=== PATIENT | female | born 1995 | race Caucasian/White ===

== ENCOUNTER → 2024-04-04 12:05 | Outpatient (CLI) | payer OTHER, MEDICAID, SELFPAY ==
--- NOTE | 2024-04-04 12:08 | DI.US.S_ITS ---
PROCEDURE: US OB >= 14 WEEKS FETUS INDICATIONS: FOLLOW UP ANATOMY SCAN OUTSIDE/PRIOR DATING DATA: Last menstrual period (LMP): Unknown LMP-based estimated date of delivery (DIGNA): Unknown. First dating scan (date and location): 01/18/2024. Estimated date of delivery (DIGNA) from first dating scan: 07/13/2024. The calculations are made using the ultrasound DIGNA of 07/13/2024. TECHNIQUE: Real-time scanning was performed of the fetus, with image documentation. Endovaginal scanning: Not performed COMPARISON: [facility], US, US OB > 14 WEEKS COMPLETE ANATOMY, 03/02/2024, 16:25. FINDINGS: General: A single living intrauterine gestation is present. Presentation: Breech. Placenta: Placental position is posterior, without previa. Amniotic fluid index: 12.4 cm, normal range is 5-24 cm. Single deepest vertical pocket is 3.8 cm cm. heart rate: 141 beats per minute. Maternal cervical canal: 3.2 cm long. Normal lower limit is 2.5 cm. Clinically estimated gestational age: 25 weeks 5 days Anatomic survey: Neuro: Ventricles are non-dilated at less than 10 mm. Cisterna magna is normal at 3-11 mm. Cerebellum is normal in size and morphology. Nuchal skin fold: Normal at less than 6 mm between 14-21 weeks gestational age. Face: Nose and lips, facial profile are normal. IMPRESSION: 1. Pagan living intrauterine at 25 weeks 5 days based prior dating. 2. Normal placenta and amniotic fluid. 3. Normal cranial contents, nuchal fold, face, nose and lips, profile. This completes the anatomic survey. We strive to produce accurate, complete, and clear reports of imaging services. To assist us in improving patient care, this report was composed using standard report templates and voice recognition software. Therefore, it may contain abnormal punctuation, insertions and/or omissions. Occasional wrong-word or sound-alike substitutions may occur. Though we review the report and make efforts to correct it, we do recommend that the report be read carefully in proper context to recognize any text inaccuracies. Dictated by: Efrain Fitzgerald M.D. on 04/13/2024 at 14:30 Approved by: Efrain Fitzgerald M.D. on 04/13/2024 at 14:40
== END ==
PROVIDERS: PCP Nurse Practitioner Family; Referring Provider Advanced Practice Midwife; Visit Provider Advanced Practice Midwife
DX: Z34.92 Encounter for supervision of normal pregnancy, unspecified, second trimester (principal); Z3A.25 25 weeks gestation of pregnancy
CPT/HCPCS: 76816

== ENCOUNTER 2024-07-12 10:53 | Observation (INO) | payer OTHER, MEDICAID, SELFPAY ==
--- NOTE | 2024-07-12 11:39 | PM.OBTRLD ---
Visit Information Visit Information Date of evaluation: 07/12/24 Primary OB Provider: Monica Soliz Reason for Evaluation: Yes rule out labor and Yes rupture of membranes Comments/Additional reasons for admission: Emilee is a at 39w6d by sure LMP and 14w US arrives with her to the unit for evaluation of ROM and labor. She says that she felt a gush of water around 2am this morning and started having contractions shortly after. She said the contractions started to intensify around 5 am this morning. She was having timable contractions that she had to stop and breath through prior to driving to the hospital. During the 1 hour commute to the hospital, she only had 3 contractions. After arriving to the hospital the contractions all but stopped. She has not had any vaginal bleeding and continues to feel good movement. Vital Signs Vital Signs: BP:120/75 HR: 89 T: 98.5 F RR: 16 PFSH Medical History (Updated 07/12/24 @ 12:11 by Monica Soliz CNM) Endometriosis Ovarian cyst Pyelonephritis Surgical History (Updated 07/12/24 @ 11:47 by Monica Soliz CNM) No history of previous surgery Family History (Updated 07/12/24 @ 11:49 by Monica Soliz CNM) Mother Depression Social History (Updated 07/12/24 @ 11:52 by Monica Soliz CNM) Smoking Status: Former smoker Smokeless tobacco user: other quit status: quit date established substance use type: marijuana Comment: She quit using vape when she found out she was . Currently uses marijuana 1-2x day for pain and nausea. Review of Systems Review of Systems ROS: Yes All systems reviewed with the patient and are negative except as otherwise documented Cardiovascular Cardiovascular: Reports system reviewed and no additional complaints, except as documented Respiratory Respiratory: Reports system reviewed and no additional complaints, except as documented Psychiatric Psychiatric: Reports system reviewed and no additional complaints, except as documented Exam Vital Signs (past 8 hours): see above Const General: cooperative, comfortable and well hydrated Orientation: alert, awake, oriented to person, oriented to place and oriented to time Chest Chest: normal inspection of the chest Resp Effort & Inspection: normal respiratory effort and able to speak in complete sentences Cardio Rate: regular rate Rhythm: regular rhythm Psych Appearance: grossly normal Mental Status: mental status grossly normal Speech and Movement: speech and movement normal Mood: congruent mood Objective Labs Labs: Aminsure positive GBS negative Evaluation Evaluation Baseline heart rate: 140 Variability: Moderate (11-25) monitor accelerations: Absent Monitor Decelerations: Absent Contraction Frequency (minutes): 10 (8-10) Uterine Contraction Intensity: Mild Category of Tracing: Reactive Non-invasive Membranes Rupture Test: positive Comments: CE deferred due to SROM Diagnosis, Plan/Disposition Final Diagnosis (1) PROM (premature rupture of membranes): Status: Acute Plan/Disposition Plan: A: Term nullipara PROM x 10 hours without sx of infection No indication for antibiotics Reassuring FHR P: Counseled on options of active vs expectant management of labor w/ discussion of risks, benefits and alternatives. Discussed ROM x 18 hours as risk for infection. Emilee elected expectant management and agrees to return to hospital at or before 24 hours of ROM by 2am 07/13/24. Counseled on reasons to return sooner, PRN. OB Disposition: home
== END 2024-07-12 11:45 | disposition home or self-care (01) ==
PROVIDERS: Admitting Provider Nurse Practitioner Obstetrics & Gynecology; PCP Nurse Practitioner Family; Referring Provider Nurse Practitioner Obstetrics & Gynecology; Visit Provider Nurse Practitioner Obstetrics & Gynecology
DX: O42.92 Full-term premature rupture of membranes, unspecified as to length of time between rupture and onset of labor (principal); Z3A.39 39 weeks gestation of pregnancy
CPT/HCPCS: 59025; 84112; G0378; G0379

== ENCOUNTER 2024-07-13 02:29 | Inpatient (IN) | payer OTHER, MEDICAID, SELFPAY ==
--- NOTE | 2024-07-13 03:12 | PM.OBHP.1 ---
OB HPI Date/Time Date of admission: 07/13/24 Date Patient Seen: 07/13/24 Time Patient Seen: 03:00 History of Present Condition Chief complaint: Labor : 1 Para: 0 Estimated Gestational Age (weeks): 40w Narrative: Emilee Lewis is a 28 year old female by sure LMP concordant with 14w US here today for admission for PROM x 25 hours. Was seen in triage with confirmed PROM and reactive NST at 9 hours of ROM. After counseling on active vs expectant management of PROM with risk of infection increasing at 18 hours of ROM, patient elected expectant management and declined to return to hospital until now. Was able to rest and sleep throughout the day and started eduardo again in the evening. Stronger contractions started around 0300. Currently breathing through contractions every 10 minutes for about 30-40 seconds. She continues to feel good movement and her fluid continues to be clear. She has not had any vaginal bleeding. She arrives with her and mom for labor support. Uncomplicated care with CNMs. Planning no intervention and declines IV placement during labor. History of Present care: good care, initiated at week # (14), number of visits (7) and pounds weight gain (38) Dating criteria: LMP confirmed by 1st trimester US Ultrasounds: normal 1st trimester US and normal mid trimester US Obstetrical complications: none Medical complications: none Preadmission Labs Blood type: O (+) positive -: Antibody screen: negative, GBS status: negative, HBsAG: negative, HIV: negative, HSV 1: negative, HSV 2: negative and RPR/VDLR: negative -: Chlamydia screen: not detected and Gonorrhea screen: not detected -: Rubella: immune and Varicella: immune HCT: 35 HCAB: negative PAP: Normal Quad screen: Normal Urine: negative for infection 1 hr GTT: 96 Evaluation Evaluation Baseline heart rate: 125 Variability: Moderate (11-25) monitor accelerations: Present Monitor Decelerations: Absent Contraction Frequency (minutes): 10 Uterine Contraction Intensity: Moderate Category of Tracing: Reactive Status: Category l Dilation (cm): 1.5 Effacement (%): 70 Comments: x1 CE at 25 hrs of ROM PFSH Medical History Endometriosis Ovarian cyst Pyelonephritis Surgical History No history of previous surgery Family History Mother Depression Social History Smoking Status: Former smoker Smokeless tobacco user: other quit status: quit date established substance use type: marijuana Meds Home Medications and Allergies Allergies Allergy/AdvReac Type Severity Reaction Status Date / Time Milk Containing Products Allergy Severe Anaphylaxis Verified 07/13/24 03:29 (Dairy) Review of Systems Review of Systems ROS: Yes All systems reviewed with the patient and are negative except as otherwise documented Constitutional Constitutional: Reports system reviewed and no additional complaints, except as documented ENT Ears, Nose, Mouth, and Throat: Yes system reviewed and no additional complaints, except as documented Cardiovascular Cardiovascular: Reports system reviewed and no additional complaints, except as documented Respiratory Respiratory: Reports system reviewed and no additional complaints, except as documented Psychiatric Psychiatric: Reports system reviewed and no additional complaints, except as documented OB Exam Vital signs Blood Pressure: 131/72 Pulse Rate: 98 Respiratory Rate: 18 Temperature: 98.1 F Resp Effort & Inspection: normal respiratory effort and able to speak in complete sentences Cardio Rate: regular rate Rhythm: regular rhythm External Female Exam: Yes normal external appearance Presentation: vertex Estimated Weight (lbs): 7 Amniotic Fluid: clear Objective Labs 07/13/24 03:45 Assessment and Plan Assessment and Plan Assessment and Plan narrative: A: Term nullipara Early Labor PROM x25 hours Afebrile GBS prophylaxis not indicated Rhogam not indicated Reassuring status P: Admit, routine labor orders. Counseled on strong recommendation to start pitocin d/t PROM x25 hours and not in active labor. Risks, benefits, alternatives discussed including infection which increases risk of PPH, sepsis and transfer. Patient declines pitocin augmentation, but agrees to IV placement with admission labs. Pt agrees to do rounds of pumping, walking, rest to augment labor. Assess maternal temperature q1 hour per protocol. May switch to intermittent auscultation. Reassess in 4 hours or sooner, PRN. Time-Based Coding :: [TOTAL MINUTES] spent with patient and on the chart (including review of chart, obtaining history, exam, reviewing outside data, placing orders, documenting exam and treatment plan, and counseling patient) on [DATE].
[2024-07-13 03:49] VITALS: BP 131/72; PULSE 98; RESP 18
[2024-07-13 03:54] VITALS: TEMP 36.7
[2024-07-13 03:55] LABS: Add Manual Diff / Slide Review NO; Basophils Absolute Auto 0 /uL (0-100); Basophils Percent Auto 0.3 % (0-2); Eosinophils Absolute Auto 0 /uL (0-450); Eosinophils Percent Auto 0.3 % (2-4); Hematocrit 31.4 % (36-46); Hemoglobin 10.6 g/dL (12.0-16.0); Lymphocytes Absolute Auto 1800 /uL (1100-4500); Lymphocytes Percent Auto 17.5 % (25-40); Mean Corpuscular HGB Conc 33.7 % (30-36); Mean Corpuscular Hemoglobin 29.5 PG (26-34); Mean Corpuscular Volume 87.4 fL (80-100); Monocytes Absolute Auto 800 /uL (0-900); Neutrophils Absolute Auto 7600 /uL (1500-7000); Neutrophils Percent Auto 73.9 % (50-75); Platelet Count 154 X10^3/uL (150-400); Red Blood Cell Count 3.59 X10^6/uL (4.0-5.2); White Blood Cell Count 10.3 X10^3/uL (4.5-11.0)
[2024-07-13] MEDS: ONDANSETRON 4 MG/2 ML INJ IV (04:30)
--- NOTE | 2024-07-13 07:12 | PM.OBPNLAB ---
Date/Time Date Patient Seen: 07/13/24 Time Patient Seen: 07:12 Pain Control Pain control: tolerating well Comments: Has copleted several rounds of pumping/walking/resting. After the first pumping session, her contractions immediately picked up and have remained strong and regular. She has tied NO2 with minimal relief and really preferred the shower to cope best. Consents to a repeat CE at this time. VS: BP 128/73, HR 78, T 36.6C Pelvic Exam Dilation (cm): 5 Effacement (%): 80 station: -2 Amniotic membrane status: Leaking Contractions Monitor mode: Palpation Contraction frequency (min): 3 (2-4) Contraction duration (min): 1 Contraction intensity: Moderate Status Heart Rate Baseline: 130 (regular, no decreases) Assessment and Plan Assessment: active labor (PROMx29 hours without sx of infection) Plan: continuous present management Comments: Labor support, PRN. Reassess in 4 hours or sooner, PRN.
--- NOTE | 2024-07-13 13:21 | PM.OBPNLAB ---
Date/Time Date Patient Seen: 07/13/24 Time Patient Seen: 13:00 Pain Control Pain control: other (NO2, hydrotherapy) Comments: Laboring well without augmentation. Changing positions frequently. Switching between laboring in the tub and in her room on hands and knees utilizing NO2. Struggling to cope, but has not requested additional interventions. Declined an interval CE until now. Her mother has been supportive at her side. Her partner remains present. VS: BP 125/80, HR 92bpm, T 97.8F Oral Pelvic Exam Dilation (cm): 7 Effacement (%): 90 station: -2 Amniotic membrane status: Leaking Contractions Monitor mode: Palpation Contraction frequency (min): 3 (2-4) Contraction intensity: Moderate Status Heart Rate Baseline: 138 (regular) Comments: reassuring by IA Assessment and Plan Assessment: active labor (PROM x 35 hours without sx of infection) Plan: continuous present management (expectant management) Comments: Labor support, PRN. Continue Q1hr temps. Reassess in 4 hours or sooner, PRN.
--- NOTE | 2024-07-13 17:08 | PM.OBPNLAB ---
Date/Time Date Patient Seen: 07/13/24 Time Patient Seen: 17:08 Pain Control Pain control: other (NO2) Comments: Laboring well without augmentation. Occasionally utilizing NO2 with some relief. Preferring hands and knees, moving from bed to floor. Continuous labor support by family, friend, RN and CNM. VS: BP 139/87, HR 91bpm, T 97.5F Temporal Pelvic Exam Dilation (cm): 8 Effacement (%): 90 station: 0 Amniotic membrane status: Leaking Contractions Monitor mode: Palpation Contraction frequency (min): 3 (2-4) Contraction duration (min): 1 Contraction intensity: Moderate Status Heart Rate Baseline: 135 (regular) Comments: Reassuring FHTs by IA Assessment and Plan Assessment: active labor (PROM x 39 hours without sx of infection) Plan: continuous present management Comments: Continuous labor support. Reassess in 4 hours, or sooner, PRN.
--- NOTE | 2024-07-13 20:45 | PM.OBPNLAB ---
Date/Time Date Patient Seen: 07/13/24 Time Patient Seen: 20:46 Pain Control Pain control: other Comments: Continues to switch between hydrotherapy, NO2 in the room and no interventions for analgesia. Struggling to cope, does not desire an epidural. Afraid of increasing pressure. Mother remains supportive at her side. RN and CNM offering near continuous labor support. VS: BP 135/79, HR 78, T 97.7F Oral Pelvic Exam Dilation (cm): 9 Effacement (%): 90 station: 0 Amniotic membrane status: Leaking Contractions Monitor mode: Palpation Contraction frequency (min): 4 (2-5) Contraction duration (min): 1 Contraction intensity: Moderate Status Heart Rate Baseline: 135 (regular) Comments: reassuring by IA Assessment and Plan Assessment: active labor (prolonged, PROM x 43 hours without sx of infection) Plan: continuous present management Comments: Continuous labor support. Anticipate second stage soon.
--- NOTE | 2024-07-13 23:55 | PM.OBPNLAB ---
Date/Time Date Patient Seen: 07/13/24 Time Patient Seen: 23:55 Pain Control Pain control: other (NO2) Comments: CNM at bedside continuously for last several hours. Strong, spontaneous urge to push at 2157 and Emilee was presumed complete. She has struggled with pushing, more instinctively clenching and backing away from the intense pressure despite coaching and significant maternal conscious effort. Emilee is now frustrated and requesting pain relief. VS: BP 137/87, HR 126, T 97.7F Oral Pelvic Exam Dilation (cm): 10 Effacement (%): 100 station: 0 Amniotic membrane status: Leaking Contractions Monitor mode: Palpation Contraction frequency (min): 3 (2-4) Contraction duration (min): 1 Contraction intensity: Moderate Status Heart Rate Baseline: 145 (regular) Comments: FHR reassuring by IA throughout 2 hours of second stage Assessment and Plan Assessment: active labor (prolonged, PROM x 46 hours without sx of infection) Plan: continuous present management and other (Epidural DIAZ) Comments: Once adequate pain relief is established, will continue with coached pushing. Anticipate NSVB.
--- NOTE | 2024-07-14 01:24 | PM.AN.REGBLK ---
Regional Block Pre-procedure Procedure: Continuous Lumbar Epidural for L&D (with CSE) Attending OB provider: Monica Soliz PMH/ROS narrative: 28yo complete and had been pushing ineffectively, now requests epidural for pain relief. See preanesthesia evaluation for further details. ASA Class: II Labs: Hct 31.4 % (36-46) L 07/13/24 03:45 Plt Count 154 X10^3/uL (150-400) 07/13/24 03:45 Medications: Current Medications Generic Name Dose Route Start Last Admin Trade Name Freq PRN Reason Stop Dose Admin Calcium Carbonate 1,000 mg 07/13/24 02:32 Calcium Carbonate 500 Mg Tab PO Q2HR PRN Dyspepsia Carboprost Tromethamine 250 mcg 07/13/24 02:32 Carboprost 250 Mcg/Ml Ampul IM Q90M PRN Bleeding Diphenhydramine HCl 25 mg 07/14/24 01:21 Diphenhydramine 50 Mg/Ml Vial IV Q10M PRN Pruritis Ephedrine Sulfate 10 mg 07/14/24 01:21 Ephedrine 50 Mg/Ml Vial IV Q5M PRN Blood pressure decrease more than 20% of baseline. Fentanyl 100 mcg 07/13/24 02:32 Fentanyl 100 Mcg/2 Ml Inj IV Q1H PRN Pain, Severe (7-10) Oxytocin/Lactated Ringer's 30 unit in 500 mls @ 200 mls/hr 07/13/24 02:32 Oxytocin Premix IV CONT PRN Bleeding Protocol Tranexamic Acid 1,000 mg/ 100 mls @ 600 mls/hr 07/13/24 02:32 Sodium Chloride IV NOW PRN Bleeding Oxytocin/Lactated Ringer's 30 unit in 500 mls @ 2 mls/hr 07/13/24 02:45 Oxytocin Premix IV TITRATE SYLVIA Protocol 2 MILLIUNIT/MIN FENT 2MCG/ML BUPIV 0.125% EPI 200 mcg in 100 mls @ 6 mls/hr 07/14/24 01:30 Fentanyl/Bupiv/Ns 2mcg/Ml - 0.125% EPIDURAL CONT SYLVIA Lidocaine HCl 20 ml 07/13/24 02:32 Lidocaine 1% 20 Ml INJ INTRA-OP PRN Post Delivery Methylergonovine Maleate 0.2 mg 07/13/24 02:32 Methylergonovine 0.2 Mg Tablet PO Q6HR PRN Heavy Bleeding Methylergonovine Maleate 0.2 mg 07/13/24 02:32 Methylergonovine 0.2 Mg/Ml Vial IM NOW PRN Bleeding Mineral Oil 30 ml 07/13/24 02:32 Mineral Oil 30 Ml Udc TOP PRN PRN Version Misoprostol 800 mcg 07/13/24 02:32 Misoprostol 200 Mcg Tablet NH NOW PRN Bleeding Misoprostol 400 mcg 07/13/24 02:32 Misoprostol 200 Mcg Tablet SL NOW PRN Bleeding Nalbuphine HCl 2.5 mg 07/14/24 01:21 Nalbuphine 20 Mg/Ml Ampul IV Q10M PRN Pruritis Naloxone HCl 0.2 mg 07/13/24 02:32 Naloxone 0.4 Mg/Ml Vial IV Q2MIN PRN Opiate Reversal Ondansetron HCl 4 mg 07/13/24 02:32 07/13/24 04:30 Ondansetron 4 Mg/2 Ml Inj IV 4 mg Q4HR PRN Administration Nausea And Vomiting Oxytocin 10 unit 07/13/24 02:32 Oxytocin 10 Unit/Ml Vial IM NOW PRN Bleeding Allergies: Allergies Allergy/AdvReac Type Severity Reaction Status Date / Time Milk Containing Products Allergy Severe Anaphylaxis Verified 07/13/24 03:29 (Dairy) Procedure Insertion date: 07/14/24 Insertion time: 00:53 Prep/Local: 1% lidocaine (Chloraprep) Interspace: L3-4 Patient position: sitting Needle: 18 gauge Hustead (27g 5 Christiano for CSE) Loss of resistance with: saline WAI at (cm): 7 Catheter placed at SKIN (cm): 14 Catheter in SPACE (cm): 7 Insertion: No CSF, No Blood, No Paresthesia with insertion, No Paresthesia with injection and No Test dose reaction Initial Medications TEST DOSE time: 00:55 TEST DOSE: 1.5% lidocaine with epinephrine 1:200k (mL): 3 BOLUS DOSE time: 01:05 BOLUS DOSE (mL): 7 BOLUS DOSE med: other (2 ml same as test dose, 5 ml 2% lido PF) Infusion INFUSION: 0.125% bupivacaine and with fentanyl 2 mcg/mL Initial rate (mL/hr): 10 Subsequent interventions: Pt extremely tense. Required three attempts between multiple contractions to access epidural space. No CSF noted with dural puncture but gave 0.4 ml of 0.75% of bupivacaine in dextrose. Catheter placed without difficulty and secured in place. Pt initially said legs felt warm but continued to have significant pain with contractions. Attempted sensory exam, but pt unable to give useful feedback. Bolus given via epidural catheter, and then epidural infusion started. 01:57 - Pt appears to have had some relief but only a small amount from epidural bolus. Has started pushing again and pushing better than before but remains uncomfortable. Discussed with Monica PHOENIX, and bolus of 100 mcg fentanyl and 10 ml 2% lido PF given. 02:19 - Bolus appeared to take the edge off enough to help pt deliver. Baby girl born 02:19. Post-procedure Anesthesia date START: 07/14/24 Anesthesia time START: 00:37 Anesthesia date END: 07/14/24 Anesthesia time END: 02:19 Post-procedure Anesthesia Assessment: Yes CV function: HR/BP stable, Yes Resp function: RR/sat/airway adequate, Yes Post-op hydration adequate, Yes Pain control adequate, Yes Nausea & vomiting absent, Yes Temperature > 36 C, Yes Mental status appropriate and No Anesthesia complications
[2024-07-14] MEDS: fentaNYL 100 MCG/2 ML INJ IV (01:56)
--- NOTE | 2024-07-14 03:22 | P.PCNOB_ITS ---
Events: Premature Rupture Membrane (PROM x 48 hours) Labor & Delivery Delivery date: 07/14/24 Intrapartal Events: Prolonged Labor > 20 hours and Prolonged 2nd Stage > 2.5 hours Cervical ripening method: none Induction method: other (breast pumping) Route of delivery: Episiotomy description: None L&D Laceration Description: Labial Delivery repair: chromic (3.0) Quantitative Blood Loss: 250 Anesthesia Type: Spinal and Epidural Narrative: PROM x 48 hours (without symptoms of infection) and prolonged active labor (augmentation declined) led to spontaneous second stage. After 2 hours of pushing with minimal descent, an epidural was requested and placed. Minimal pain relief was achieved and pushing continued with Emilee exhausted in the bed. RT was called to standby for FHR in the 90's for 9 minutes prior to the . NSVB of a vigorous baby girl in [place] position. There was no nuchal cord and the shoulders delivered without additional maneuvers. [place] was placed on maternal abdomen for drying and skin to skin and RT was able to leave. Emilee declined active management of the third stage. Apgars 9/9. After cessation of pulsation, the cord was double clamped by CNM and cut by Emilee's mother. Emilee declined cord traction. Spontaneous, Schultze delivery of an apparently intact placenta, membranes and 3VC. Cord blood sample was drawn off of the placenta. Fundus massaged firm and bleeding light. Inspection revealed a right labial split that extended down. Labial laceration was repaired with 3.0 Chromic in the usual fashion. Fundus once again massaged firm and pitocin was again recommended and Emilee consented. 30 units of pitocin in 500mL LR was started at 334mL/hr. QBL 250mL. Both mother and baby stable and skin to skin as I left the room. [place] Baby 1: gender: Female Presentation: vertex Position: Right Occiput Anterior Placenta delivery description: Spontaneous and Normal Configuration Cord Vessel Description: 3 Vessels score (1 min): 9 score (5 min): 9 weight: 3.274 kg Plan for aftercare: Routine care
[2024-07-14] MEDS: IBUPROFEN 600 MG TABLET PO ×3 (04:55→18:06)
[2024-07-14] MEDS: ACETAMINOPHEN 325 MG TABLET 650 MG PO (14:21)
[2024-07-14 15:59] LABS: Add Manual Diff / Slide Review NO; Basophils Absolute Auto 100 /uL (0-100); Basophils Percent Auto 0.6 % (0-2); Eosinophils Absolute Auto 0 /uL (0-450); Hematocrit 33.6 % (36-46); Hemoglobin 10.9 g/dL (12.0-16.0); Lymphocytes Absolute Auto 2200 /uL (1100-4500); Lymphocytes Percent Auto 10.4 % (25-40); Mean Corpuscular HGB Conc 32.5 % (30-36); Mean Corpuscular Hemoglobin 28.6 PG (26-34); Mean Corpuscular Volume 87.8 fL (80-100); Monocytes Absolute Auto 1500 /uL (0-900); Neutrophils Absolute Auto 17400 /uL (1500-7000); Platelet Count 208 X10^3/uL (150-400); Red Blood Cell Count 3.83 X10^6/uL (4.0-5.2); Red Cell Distribution Width 13.1 % (11.6-14.8); White Blood Cell Count 21.2 X10^3/uL (4.5-11.0)
[2024-07-14 16:11] LABS: Alanine Aminotransferase 30 IU/L (<35); Albumin 3.6 g/dL (3.5-5.0); Albumin Globulin Ratio 1.2 (1.0-2.8); Alkaline Phosphatase 201 U/L (38-126); Aspartate Aminotransferase 61 IU/L (14-36); BUN Creatinine Ratio 12.5 (6-22); Bilirubin Total 0.5 mg/dL (0.2-1.3); Blood Urea Nitrogen 9 mg/dL (7-17); Calcium 9.5 mg/dL (8.4-10.2); Carbon Dioxide 24 mmol/L (22-32); Chloride 104 mmol/L (98-107); Estimated Glomerular Filt Rate > 60 mL/min (>60); Globulin 3.1 g/dL (1.7-4.1); Glucose 122 mg/dL (70-100); HEMOLYSIS < 15 (0-50); Sodium 134 mmol/L (137-145); Total Protein 6.7 g/dL (6.3-8.2); Uric Acid 6.1 mg/dL (2.5-6.2)
[2024-07-14 18:44] LABS: Creatinine Urine Random 166.65 mg/dL; Protein (Total) Urine Random 33 mg/dL (0-12); Protein Creatinine Ratio Urine 0.19 GRAM/24H
[2024-07-15] MEDS: IBUPROFEN 600 MG TABLET PO ×2 (00:30→06:50)
[2024-07-15] MEDS: LANOLIN OINT 7 GM 1 APPLIC TOP (00:51)
[2024-07-15] MEDS: ACETAMINOPHEN 325 MG TABLET 650 MG PO ×2 (03:00→10:11)
[2024-07-15 06:53] LABS: Add Manual Diff / Slide Review NO; Basophils Absolute Auto 0 /uL (0-100); Basophils Percent Auto 0.3 % (0-2); Eosinophils Absolute Auto 0 /uL (0-450); Eosinophils Percent Auto 0.3 % (2-4); Hematocrit 29.1 % (36-46); Hemoglobin 9.6 g/dL (12.0-16.0); Lymphocytes Absolute Auto 2200 /uL (1100-4500); Lymphocytes Percent Auto 19.5 % (25-40); Mean Corpuscular Hemoglobin 29.2 PG (26-34); Mean Corpuscular Volume 88.3 fL (80-100); Monocytes Absolute Auto 800 /uL (0-900); Monocytes Percent Auto 6.8 % (3-14); Neutrophils Absolute Auto 8400 /uL (1500-7000); Neutrophils Percent Auto 73.1 % (50-75); Platelet Count 136 X10^3/uL (150-400); White Blood Cell Count 11.4 X10^3/uL (4.5-11.0)
[2024-07-15 07:10] LABS: Alanine Aminotransferase 35 IU/L (<35); Albumin 2.8 g/dL (3.5-5.0); Alkaline Phosphatase 158 U/L (38-126); Aspartate Aminotransferase 73 IU/L (14-36); BUN Creatinine Ratio 15.7 (6-22); Bilirubin Total 0.3 mg/dL (0.2-1.3); Blood Urea Nitrogen 13 mg/dL (7-17); Calcium 8.6 mg/dL (8.4-10.2); Carbon Dioxide 26 mmol/L (22-32); Chloride 109 mmol/L (98-107); Estimated Glomerular Filt Rate > 60 mL/min (>60); Globulin 2.7 g/dL (1.7-4.1); Glucose 90 mg/dL (70-100); HEMOLYSIS < 15 (0-50); Potassium 3.8 mmol/L (3.4-5.1); Sodium 137 mmol/L (137-145); Total Protein 5.5 g/dL (6.3-8.2)
--- NOTE | 2024-07-15 09:04 | PM.OBDS.1 ---
Discharge Providers Provider Date of admission: 07/13/24 02:29 Discharge Date: 07/15/24 Primary care physician: Erlinda Davis, SYLVESTER, CYBER OPERATOR Consults: 07/15/24 03:25 Consult to [employer] Routine Comment: Discharge provider: Monica Soliz CNM Summary Hospital Course Date Patient Seen: 07/15/24 Time Patient Seen: 09:05 Diagnoses: O70.0 Hospital Course: Spontaneous labor with PROM x48 hours and no signs of infection. Prolonged second stage. NSVB with a right labial laceration requiring repair. Elevated BPs in labor with negative preeclampsia labs. PPD1: Stable with routine course. Voiding, ambulating and independently. Tolerating a general diet. Pain well controlled with PO medication. Vaginal bleeding is light without clots. Feeling ready for discharge to home this morning. Peripartum Data Infant Delivery Method: Natural Vaginal Laceration Description: Labial Episiotomy description: None Procedures: O70.0 [place] 1: Gender: Female Disposition of : home Discharge Diagnosis (1) Del w/ 1 deg lac-unsp: Status: Acute Status at Discharge Cognitive/behavioral status at discharge: oriented and calm Functional status at discharge: independent ambulation Overall status at discharge: patient is progressing back to baseline Time Spent with Patient Time attestation: Total time spent providing and/or coordinating discharge services: Time spent: Less than 30 minutes Objective Labs 07/15/24 06:40 07/15/24 06:40 Labs: Laboratory Results - last 24 hr 07/14/24 07/14/24 07/15/24 15:53 18:10 06:40 WBC 21.2 H D 11.4 H RBC 3.83 L 3.30 L Hgb 10.9 L 9.6 L Hct 33.6 L 29.1 L MCV 87.8 88.3 MCH 28.6 29.2 MCHC 32.5 33.0 RDW 13.1 13.0 Plt Count 208 136 L Neut % (Auto) 82.0 H 73.1 Lymph % (Auto) 10.4 L 19.5 L [place] % (Auto) 7.0 6.8 Eos % (Auto) 0.0 L 0.3 L Baso % (Auto) 0.6 0.3 Neut # (Auto) 35749 H 8400 H Lymph # (Auto) 2200 2200 [place] # (Auto) 1500 H 800 Eos # (Auto) 0 0 Baso # (Auto) 100 0 Sodium 134 L 137 Potassium 4.0 3.8 Chloride 104 109 H Carbon Dioxide 24 26 BUN 9 13 Creatinine 0.72 0.83 Estimated GFR > 60 > 60 BUN/Creatinine Ratio 12.5 15.7 Glucose 122 H 90 Uric Acid 6.1 Calcium 9.5 8.6 Total Bilirubin 0.5 0.3 AST 61 H 73 H ALT 30 35 H Alkaline Phosphatase 201 H 158 H Total Protein 6.7 5.5 L Albumin 3.6 2.8 L Globulin 3.1 2.7 Albumin/Globulin Ratio 1.2 1.0 U Random Total Protein 33 H Urine Creatinine 166.65 Protein/Creatinin Ratio 0.19 Exam Vital Signs (past 8 hours): BP 128/72, HR 72bpm, T 36.5C Oral Resp Effort & Inspection: normal respiratory effort and able to speak in complete sentences Cardio Rate: regular rate Rhythm: regular rhythm Other: Fundus firm @ U-1, lochia small to moderate without clots. Perineum intact, right labial laceration well approximated. Discharge Plan Discharge Plan Patient Disposition: Home Discharge orders & Medications Prescriptions: New ibuprofen 600 mg Tablet 600 mg PO Q6HR PRN (Reason: Pain, Mild (1-3)) 14 Days Qty: 60 0RF Follow up/Referrals: Erlinda Davis, SYLVESTER, CYBER OPERATOR [Primary Care Provider] - Monica Soliz CNM [[employer]] - (Follow-up in 2 weeks and 6 weeks as scheduled. ) Diet/Activity/Treatments Diet: Diet as Tolerated and Regular Activity: Home BPs x 1 week, bed rest x 2 weeks, no heavy lifting x 4 weeks, vaginal rest x 6 weeks Skin/Wound/Dressing Care Report to your healthcare provider any signs of infection, such as:: chills, fever, increased pain, unusual drainage and unusual redness Visit Report/Discharge Packet Instructions: Depression Stand Alone Forms: Patient Portal/API, Stroke Signs & Symptoms Discharge Data Primary Care Provider: Erlinda Davis
[2024-07-15 09:49] VITALS: BP 131/72; PULSE 98; RESP 18; TEMP 36.7
== END 2024-07-15 13:10 | disposition home or self-care (01) | DRG 560 ==
PROVIDERS: Advanced Practice Midwife; Admitting Provider Nurse Practitioner Obstetrics & Gynecology; PCP Nurse Practitioner Family; Referring Provider Nurse Practitioner Obstetrics & Gynecology; Visit Provider Nurse Practitioner Obstetrics & Gynecology
DX: O42.12 Full-term premature rupture of membranes, onset of labor more than 24 hours following rupture (principal); O63.1 Prolonged second stage (of labor); O70.0 First degree perineal laceration during delivery; O76 Abnormality in fetal heart rate and rhythm complicating labor and delivery; Z37.0 Single live birth; Z3A.40 40 weeks gestation of pregnancy
CPT/HCPCS: 36415; 59025; 59050; 80053; 84112; 84550; 85025; 86850; 86900; 86901; G0378; G0379; J2405; J3010